=== PATIENT | female | born 1945 | race American Indian/Alaskan Native ===

== ENCOUNTER 2017-10-26 06:57 | Day surgery (SDC) | payer MEDICARE ==
[2017-10-26] MEDS ORDERED: ECOTRIN PO ONE (07:37)
[2017-10-26] MEDS ORDERED: NACL 0.9% 500 ML 500 ML IV SCH (08:00)
[2017-10-26 08:47] LABS: Basophils % (Auto) 0.5 % (0.0-1.8); Eosinophils # (Auto) 0.4 K/mm3 (0.0-0.4); Eosinophils % (Auto) 4.4 % (0.0-4.3); Hematocrit 27.1 % (30.3-42.9); Hemoglobin 8.2 gm/dl (10.1-14.3); Lymphocytes # (Auto) 2.4 K/mm3 (1.2-5.4); Mean Corpuscular HGB Conc 30 % (30-34); Mean Corpuscular Hemoglobin 24 pg (28-32); Mean Corpuscular Volume 78 fl (79-97); Monocytes # (Auto) 0.6 K/mm3 (0.0-0.8); Monocytes % (Auto) 6.9 % (0.0-7.3); Platelet Count 180 K/mm3 (140-440); Red Blood Count 3.46 M/mm3 (3.65-5.03); Red Cell Distribution Width 16.7 % (13.2-15.2)
[2017-10-26 08:51] LABS: BUN/Creatinine Ratio 17; Blood Urea Nitrogen 17 mg/dL (7-17); Calcium 8.8 mg/dL (8.4-10.2); Hemolysis Index 0
[2017-10-26] MEDS ORDERED: PLAVIX PO SCH (10:00)
[2017-10-26] MEDS ORDERED: HEPARIN/NS 5000 UNIT/500ML(CATH LAB) 1,000 ML IR ONE (10:16)
[2017-10-26] MEDS ORDERED: VERSED ONE (10:17)
[2017-10-26] MEDS: SUBLIMAZE ONE ×2 (10:36→10:56)
[2017-10-26] MEDS: XYLOCAINE 2% INFILTRATI ONE ×2 (10:37→10:55)
[2017-10-26] MEDS ORDERED: BENADRYL IV ONE ×2 (10:39→10:50)
--- NOTE | 2017-10-26 11:26 | Discharge Summary ---
Short Stay Discharge Plan Activity: advance as tolerated Weight Bearing Status: Partial Weight Bearing Diet: low fat, low cholesterol, low salt, diabetic Wound: keep clean and dry Special Instructions: no heavy lifting (3 days) Follow up with: MARISELA HOWELL MD [Primary Care Provider] - 7 Days TRACY PEDRAZA MD [Staff Physician] - 7 Days
[2017-10-26] MEDS ORDERED: NACL 0.9% 1000 ML 1,000 ML IV SCH (12:00)
[2017-10-26] MEDS ORDERED: FLUSH HEPARIN IV ONE ×2 (15:18→15:25)
[2017-10-26 15:46] VITALS: BP 122/58
--- NOTE | 2017-10-27 00:02 | Cardiac Catherization Report ---
CARDIAC CATHETERIZATION REASON FOR PROCEDURE: Chest pain and history of coronary artery disease. PROCEDURE: The patient was prepped and draped in a sterile fashion after informed consent. The right femoral artery was entered using the Seldinger technique followed by placement of a 6-[place] sheath. Selective left and right coronary angiography was performed using #4 right and left Moiz catheters. The pigtail catheter was used for left ventricle angiography. The catheters were removed, sheath removed, and hemostasis achieved using an Angio-Seal device. The patient was returned to the postprocedure unit in stable condition. There were no complications. FINDINGS: HEMODYNAMICS: Left ventricle end diastolic pressure was 24, following coronary angiography. Ascending aortic pressure was 178/83. There was no significant pressure gradient on pullback across the aortic valve. CORONARY ANGIOGRAPHY: There was moderate diffuse coronary calcification, chiefly involving the left coronary vessels. The left main coronary artery contained mild narrowing in its distal segment before its bifurcation into the LAD and circumflex arteries. The left anterior descending artery contained diffuse mild atherosclerosis, associated with diffuse calcification of its proximal, mid, and distal segments. No severe obstructive lesions were noted in the LAD system. The circumflex artery contained a 20-30% ostial narrowing. This was followed by diffuse mild atherosclerosis of the rest of the circumflex system and obtuse marginal branches. Again, no severe obstructive lesions were noted in the circumflex system. The right coronary artery was a relatively small caliber, but dominant vessel. Stent was visible in the proximal and mid right coronary artery. The stented segment was patent with no severe restenosis. We did note diffuse mild atherosclerosis through the stented and nonstented distal segments of this vessel. We did also note a 20-30% proximal narrowing, and another 20-30% narrowing of the mid segment, both representing mild in-stent restenosis. The left ventricle was at the upper limits of normal in size. Left ventricular systolic function was at the lower limits of normal, with ejection fraction estimated at 45-50%. CONCLUSION: 1. Patent right coronary artery stent. 2. Otherwise, diffuse mild 3-vessel atherosclerosis and calcification. No severe residual obstructive lesions. 3. Left ventricular systolic function at the lower limits of normal, ejection fraction 45-50%. RECOMMENDATION: Aggressive risk factor modification, medical therapy. [facility]# [id number] CA/NTS
== END 2017-10-26 16:00 | disposition home or self-care (01) ==
LOC: CATHLABREC 06:57
PROVIDERS: ATTEND Internal Medicine Cardiovascular Disease
DX: I25.10 Atherosclerotic heart disease of native coronary artery without angina pectoris (principal); I25.2 Old myocardial infarction; E11.9 Type 2 diabetes mellitus without complications; E03.9 Hypothyroidism, unspecified; E78.00 Pure hypercholesterolemia, unspecified; M06.9 Rheumatoid arthritis, unspecified; K21.9 Gastro-esophageal reflux disease without esophagitis; Z90.710 Acquired absence of both cervix and uterus; Z90.49 Acquired absence of other specified parts of digestive tract; Z79.84 Long term (current) use of oral hypoglycemic drugs
CPT/HCPCS: 36415; 80048; 82962; 85025; 85610; 85730; 93005; 93010; 93458; 99156; C1760; C1894; J1200; J1642; J1644; J2250; J3010; J7040; Q9967